=== PATIENT | male | born 1960 | race Caucasian/White ===

== ENCOUNTER 2021-04-11 06:23 | Emergency (ER) | payer BC, SELFPAY ==
[2021-04-11 06:24] VITALS: BP 118/80; PULSE 91; RESP 16; TEMP 36.4; O2SAT 98; BMI 23.8
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
--- NOTE | 2021-04-11 06:44 | RAD_ITS ---
STUDY: X-RAY - RIGHT KNEE REASON FOR EXAM: Male, 60 years old. Pain TECHNIQUE: 3 radiographic view(s) of the knee. COMPARISON: None. FINDINGS: Normal visualized distal femur. Fracture extending from the medial tibial spine to the lateral tibial spine and lateral tibial metaphysis with mild depression of the lateral fragment. Normal proximal tibiofibular articulation. Normal medial femorotibial compartment. Normal lateral femorotibial compartment. Normal patellofemoral articulation. Moderate lipohemarthrosis. The soft tissue structures are unremarkable. RAD/Knee 1 or 2 Views IMPRESSION: Schatzker type II tibial plateau fracture with involvement of the medial tibial spine. Electronically Signed: Nic Ivory MD at 7:39 EDT Tel , Service support ,
--- NOTE | 2021-04-11 06:44 | RAD_ITS ---
STUDY: X-RAY - LEFT WRIST REASON FOR EXAM: Male, 60 years old. Pain TECHNIQUE: 3 radiographic view(s) of the wrist were obtained. COMPARISON: None. FINDINGS: Impacted and posteriorly angulated fracture of the distal radial metaphysis. Ulnar styloid comminuted fracture with minimal displacement. Radiocarpal alignment is maintained. Capital lunate alignment is maintained. Joint spaces are preserved. Circumferential soft tissue swelling. RAD/Wrist min 3 Views IMPRESSION: Colles'' fracture. Ulnar styloid fracture. Electronically Signed: Nic Ivory MD at 7:42 EDT Tel , Service support ,
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
--- NOTE | 2021-04-11 08:10 | NURSING ---
PER OUR [employer], DR BROOKS IS IN SURGERY
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
--- NOTE | 2021-04-11 09:30 | RAD_ITS ---
STUDY: X-RAY - LEFT WRIST REASON FOR EXAM: Male, 60 years old. Post reduction TECHNIQUE: 3 view(s) of the wrist were obtained in a cast. COMPARISON: Comparison is made with prior study done earlier today. FINDINGS: Satisfactory reduction of the comminuted distal radial fracture. Nondisplaced fracture of the ulnar styloid. Normal carpometacarpal articulation of the thumb. Normal second through fifth carpometacarpal articulations. Normal visualized metacarpal bones. Soft tissue swelling. RAD/Wrist min 3 Views IMPRESSION: Satisfactory reduction of the comminuted distal radial fracture. Electronically Signed: Mike Li MD at 9:53 EDT , Service support ,
[2021-04-11 10:40] VITALS: RESP 18
== END 2021-04-11 10:41 | disposition home or self-care (01) ==
PROVIDERS: Emergency Provider Emergency Medicine
DX: S52.532A Colles' fracture of left radius, initial encounter for closed fracture (principal); S82.144A Nondisplaced bicondylar fracture of right tibia, initial encounter for closed fracture; S52.612A Displaced fracture of left ulna styloid process, initial encounter for closed fracture; V20.4XXA Motorcycle driver injured in collision with pedestrian or animal in traffic accident, initial encounter; Y93.55 Activity, bike riding; Y92.9 Unspecified place or not applicable; F17.210 Nicotine dependence, cigarettes, uncomplicated
CPT/HCPCS: 25605; 70450; 72125; 73110; 73560; 73700; 99284

== ENCOUNTER → 2021-04-14 15:45 | Outpatient (CLI) | payer BC, SELFPAY ==
--- NOTE | 2021-04-14 16:00 | RAD_ITS ---
STUDY: X-RAY CHEST REASON FOR EXAM: Male, 60 years old. PRE OP TECHNIQUE: PA and lateral views of the chest. COMPARISON: None. FINDINGS: The lungs are clear and expanded. There is no demonstrated pleural abnormality. Normal size heart. Normal mediastinum and manjeet. Normal visualized pulmonary arteries. Normal visualized aortic arch and descending thoracic aorta. There are diffuse degenerative changes of the visualized thoracic spine. Normal visualized ribs, clavicles, and shoulders. There is no demonstrated abnormality of the visualized soft tissue structures of the upper abdomen. RAD/Chest PA and Lateral IMPRESSION: No acute cardiopulmonary process. Electronically Signed: Kenneth Mccabe MD (Brooks) at 16:11 EDT , Service support ,
[2021-04-14 17:12] LABS: Absolute Lymphocyte Count 2.01 X10^3/uL (0.83-4.51); Absolute Neutrophil Count 4.5 X10^3/uL (2.0-7.7); Basophil# 0.04 X10^3/uL; Basophil% 0.5 % (0-1); Eosinophil# 0.13 X10^3/uL; Eosinophils% 1.7 % (0-5); Hematocrit 39.3 % (40-54); Hemoglobin 13.1 g/dL (13.0-16.5); Lymphocyte # 2.01 X10^3/ul (0.83-4.51); Lymphocyte % 26.8 % (19-41); Mean Corp Hgb Conc 33.3 g/dL (32-36); Mean Corpuscular Volume 96.1 fL (80-94); Mean Platelet Vol. 9.4 fl (6.2-12.0); Monocyte# 0.84 X10^3/uL; Monocyte% 11.2 % (0-10); NRBC Flagged by Analyzer 0 % (0-5); Neutrophil # 4.45 X10^3/uL (2.7-7.7); Neutrophil % 59.4 % (47-70); Platelet Count 239 K/mm3 (150-450); RBC Distribution Width CV 11.9 % (11.6-14.6); RBC Distribution Width SD 41.7 fl (35.1-43.9); Red Blood Count 4.09 M/mm3 (4.6-6.2); White Blood Count 7.5 K/mm3 (4.4-11.0)
[2021-04-14 18:10] LABS: Anion Gap 8 (5-15); BUN 13 mg/dL (7-18); BUN/Creat Ratio 13.3 RATIO (10-20); Calcium,Total 9.3 mg/dL (8.5-10.1); Chloride 109 mmol/L (98-107); Creatinine, Serum 0.97 mg/dL (0.70-1.30); EST Glomerular Filtration Rate 84 mL/min (>60); Est Glom Filt Rate - Afr Amer 101 mL/min (>60); Glucose 85 mg/dL (74-106); Potassium 3.9 mmol/L (3.5-5.1); Sodium Level 143 mmol/L (136-145)
== END ==
PROVIDERS: Referring Provider Student in an Organized Health Care Education/Training Program; Visit Provider Student in an Organized Health Care Education/Training Program
DX: Z01.818 Encounter for other preprocedural examination (principal); Z01.810 Encounter for preprocedural cardiovascular examination; Z01.811 Encounter for preprocedural respiratory examination
CPT/HCPCS: 36415; 71046; 80048; 85025; 93005